=== PATIENT | male | born 1935 | race Caucasian/White ===

== ENCOUNTER 2016-09-10 11:26 | Observation (INO) ==
[2016-09-10] MEDS ORDERED: IOPAMIDOL 100 ML BOTTLE IJ ONE (11:27)
--- NOTE | 2016-09-10 12:25 | Emergency Department Note ---
Dizziness HPI - General Chief Complaint: Dizziness Stated Complaint: increased dizziness/weakness Time Seen by Provider: 09/10/16 11:44 Source: patient Mode of arrival: EMS Limitations: no limitations - History of Present Illness HPI Narrative: 80-year-old male presents with increased dizziness and lower extremity weakness. He states this started yesterday when he was working out in the yard. He stood up after bending over and felt lightheaded. He states that the lightheadedness has increasingly gotten worse. This is worse with position change. The worse symptoms as when he sits up from a sitting to standing position. He had a fall last night and bumped his arm but did not hit his head. He was seen here yesterday and had a head CT and a lower extremity venous ultrasound which were negative. Was diagnosed with BPPV. He states that it does not feel like the room is spinning. He states that is a lightheaded feeling when he stands up. He was given some IV fluids yesterday. He is on Coumadin due to PEs that he has had in his lungs. He denies shortness of breath or cough. Denies chest pain. He has had a back injury years ago and has some right-sided lower extremity weakness and some radicular symptoms. He has pain in the left calf when he walks. Nontender to palpation. - Related Data Previous Rx's Medication Instructions Recorded DISABLED PARKING #1 each NS 03/04/15 warfarin 1 mg tablet 2 mg PO .COMPLEX #60 tab 08/06/16 warfarin 5 mg tablet 5 mg PO .6XW #30 tab 09/02/16 Meclizine [Antivert] 25 mg PO TIDP PRN #15 tablet 09/09/16 Allergies Allergy/AdvReac Type Severity Reaction Status Date / Time alendronate sodium Allergy Unknown Cramping Verified 11/25/15 09:09 [From Fosamax] of the Muscles codeine [CODEINE] AdvReac Intermediate Nausea/Vomi Verified 11/25/15 09:09 ting diazepam [DIAZEPAM] AdvReac Unknown Delirium Verified 11/25/15 09:09 Review of Systems All systems ED: reviewed and negative except as stated. Past Medical History - Past Medical History Medical history: Reports: arthritis, cancer (Prostate), DVT, pulmonary embolus Surgical history ED: Reports: cataract, herniorrhaphy, prostatectomy, tonsillectomy Family history: Reports: non-contributory - Social History smoking status: Never smoker Physical Exam Carotid bruit not auscultated. No ataxia noted. He is able to to finger to nose with eyes closed. Able to stand without swaying one way or the other. Very dizzy when he stands or sits up. Able to transfer without assistance. Not dizzy when laying still - General Limitations: no limitations General appearance: alert, in no apparent distress - Head Head exam: atraumatic, normocephalic, normal inspection - Eye Eye exam: Present: normal appearance, nystagmus (to the left. No symptoms of dizziness). Absent: PERRL, EOMI - Neck Neck exam: Present: normal inspection, full ROM. Absent: tenderness, lymphadenopathy - Chest Chest inspection: Present: normal inspection, symmetric chest wall rise - Respiratory Respiratory exam: Present: normal lung sounds bilaterally - Cardiovascular Cardiovascular exam: Present: regular rate, normal heart sounds - Abdominal Exam Abdominal exam: Present: soft, normal bowel sounds. Absent: tenderness - Extremities Exam Extremities exam: Present: other (right lower extremity weakness which is chronic. Upper extremities normal full strength) - Neurological Exam Neurological exam: Present: alert, oriented X3, CN II-XII intact - Psychiatric Psychiatric exam: Present: normal affect, normal mood - Skin Skin exam: Present: warm, dry, intact Course Course Narrative: Dr. Lambert will Admit Vital Signs Temperature 98.5 F 09/10/16 11:27 Pulse Rate 77 09/10/16 11:27 Respiratory Rate 19 09/10/16 11:27 Blood Pressure 133/71 09/10/16 11:27 Pulse Oximetry (%) 95 09/10/16 11:27 Temperature 97.6 F 09/10/16 17:52 Pulse Rate 82 09/10/16 17:30 Respiratory Rate 18 09/10/16 17:52 Blood Pressure 146/80 09/10/16 17:52 Pulse Oximetry (%) 94 09/10/16 17:52 Dizziness - Lab Data Lab results reviewed: Yes I reviewed the patient's lab results. Result diagrams: 09/10/16 12:30 09/10/16 12:30 Lab Results 09/10/16 09/10/16 09/10/16 Range/Units 12:30 12:30 12:30 WBC 9.1 (4.5-11.0) K/mcL RBC 4.32 L (4.50-5.90) M/mcL Hgb 13.2 L (13.5-16.5) g/dL Hct 39.8 L (41.0-55.0) % MCV 92.2 (80.0-100.0) fL MCH 30.5 (26.0-34.0) pg MCHC 33.1 (31.0-36.0) g/dL RDW 14.7 H (11.5-14.5) % Plt Count 260 (140-440) K/mcL MPV 8.1 (7.4-10.4) fL Total Counted 100 Seg Neutrophils % 63 (38-78) % Band Neutrophils % Not Reportable Lymphocytes % 24 (15-49) % Monocytes % (Manual) 10 (1-12) % Eosinophils % (Manual) 3 (0-7) % Platelet Estimate Normal (NORMAL) RBC Morphology Normal (NORMAL) PT 21.3 H (11.9-14.5) sec INR 1.8 H (0.9-1.1) VBG Lactic Acid (0.5-2.2) mmol/L Sodium 138 (133-145) mmol/L Potassium 4.0 (3.3-5.1) mmol/L Chloride 103 (96-108) mmol/L Carbon Dioxide 24 (22-30) mmol/L Anion Gap 11.0 (8-16) BUN 20 (8-23) mg/dl Creatinine 1.3 H (0.7-1.2) mg/dl GFR Calculation 51 Glucose 91 (70-105) mg/dL Calcium 9.0 (8.6-10.4) mg/dl Total Bilirubin 0.4 (0.0-1.0) mg/dL AST 14 (0-37) U/l ALT 11 (0-40) U/l Alkaline Phosphatase 50 (39-117) U/L Total Protein 6.5 (5.9-8.4) gm/dL Albumin 3.6 (3.2-5.2) gm/dL Globulin 2.9 (2.2-3.7) gm/dL Albumin/Globulin Ratio 1.2 (1.0-2.3) TSH (0.27-5.01) uIU/ml Urine Color Urine Appearance Urine pH (5.0-9.0) Ur Specific [place] (1.000-1.035) Urine Protein (NEG) mg/dL Urine Glucose (UA) (NEG) mg/dL Urine Ketones (NEG) mg/dL Urine Occult Blood (<0.03) mg/dL Urine Nitrate (NEG) Urine Bilirubin (NEG) mg/dL Urine Urobilinogen (NEG) mg/dL Ur Leukocyte Esterase (NEG) /uL Urine RBC (0-1) /hpf Urine WBC (0-4) /hpf Ur Squamous Epith Cells (0-4) /hpf Urine Bacteria (0) /hpf Urine Mucus (0) /hpf Ur Culture Indicated? 09/10/16 09/10/16 09/10/16 Range/Units 12:30 12:30 12:54 WBC (4.5-11.0) K/mcL RBC (4.50-5.90) M/mcL Hgb (13.5-16.5) g/dL Hct (41.0-55.0) % MCV (80.0-100.0) fL MCH (26.0-34.0) pg MCHC (31.0-36.0) g/dL RDW (11.5-14.5) % Plt Count (140-440) K/mcL MPV (7.4-10.4) fL Total Counted Seg Neutrophils % (38-78) % Band Neutrophils % Lymphocytes % (15-49) % Monocytes % (Manual) (1-12) % Eosinophils % (Manual) (0-7) % Platelet Estimate (NORMAL) RBC Morphology (NORMAL) PT (11.9-14.5) sec INR (0.9-1.1) VBG Lactic Acid 1.2 (0.5-2.2) mmol/L Sodium (133-145) mmol/L Potassium (3.3-5.1) mmol/L Chloride (96-108) mmol/L Carbon Dioxide (22-30) mmol/L Anion Gap (8-16) BUN (8-23) mg/dl Creatinine (0.7-1.2) mg/dl GFR Calculation Glucose (70-105) mg/dL Calcium (8.6-10.4) mg/dl Total Bilirubin (0.0-1.0) mg/dL AST (0-37) U/l ALT (0-40) U/l Alkaline Phosphatase (39-117) U/L Total Protein (5.9-8.4) gm/dL Albumin (3.2-5.2) gm/dL Globulin (2.2-3.7) gm/dL Albumin/Globulin Ratio (1.0-2.3) TSH 1.38 (0.27-5.01) uIU/ml Urine Color Straw Urine Appearance Clear Urine pH 6.0 (5.0-9.0) Ur Specific [place] 1.003 (1.000-1.035) Urine Protein Neg (NEG) mg/dL Urine Glucose (UA) Negative (NEG) mg/dL Urine Ketones Neg (NEG) mg/dL Urine Occult Blood Neg (<0.03) mg/dL Urine Nitrate Neg (NEG) Urine Bilirubin Neg (NEG) mg/dL Urine Urobilinogen Neg (NEG) mg/dL Ur Leukocyte Esterase Neg (NEG) /uL Urine RBC < 1 (0-1) /hpf Urine WBC 2 (0-4) /hpf Ur Squamous Epith Cells 0 (0-4) /hpf Urine Bacteria 0 (0) /hpf Urine Mucus Few (0) /hpf Ur Culture Indicated? No - Radiology Data Radiology results reviewed: Yes I reviewed the patient's radiology results. Negative chest CT. Renal lesion recommend US - EKG Data EKG attestation: Yes I reviewed and interpreted this EKG. EKG results narrative: No acute infarct Disposition Pt seen by DISPATCHER SERVICE CHIEF/PA only: No Clinical Impression: Dizziness, Weakness Disposition: Xfer As Inpt ([facility]) Condition: Fair
[2016-09-10] MEDS ORDERED: 0.9 % SODIUM CHLORIDE 1,000 ML IV ONE ×2 (12:29→14:04)
[2016-09-10 13:02] LABS: Mean Cell Volume 92.2 fL (80.0-100.0); Mean Corpuscular HGB Conc 33.1 g/dL (31.0-36.0); Mean Corpuscular Hemoglobin 30.5 pg (26.0-34.0); Platelet Count 260 K/mcL (140-440); RBC 4.32 M/mcL (4.50-5.90); Red Cell Distribution Width 14.7 % (11.5-14.5)
[2016-09-10 13:19] LABS: ALT/SGPT 11 U/l (0-40); Albumin 3.6 gm/dL (3.2-5.2); Albumin/Globulin Ratio 1.2 (1.0-2.3); Alkaline Phosphatase 50 U/L (39-117); Blood Urea Nitrogen 20 mg/dl (8-23)
[2016-09-10 13:24] LABS: Appearance,Urine CLEAR; Bacteria,Urine 0 /hpf (0); Bilirubin,Urine NEG (NEG); Color,Urine STRAW; Glucose,Urine (UA) NEGATIVE (NEG); Leukocyte Esterase,Urine NEG /uL (NEG); Mucus,Urine FEW /hpf (0); Nitrate,Urine NEG (NEG); Protein,Urine NEG (NEG); Specific Gravity,Urine 1.003 (1.000-1.035); Urine Blood NEG mg/dL (<0.03); Urine RBC < 1 /hpf (0-1); Urine Squamous Epithelial Cell 0 /hpf (0-4); Urine WBC 2 /hpf (0-4); Urobilinogen,Urine NEG (NEG)
--- NOTE | 2016-09-10 13:28 | XRay Report ---
CLINICAL INFORMATION: Dizziness. Weakness. TECHNIQUE: Upright PA and lateral chest x-ray COMPARISON: 11/20/2008 FINDINGS: Mildly elevated right hemidiaphragm. Small right effusion is possible. No evidence for left pleural effusion No focal pulmonary parenchymal infiltrate or mass. Lungs are negative. Heart size and vascularity are normal. No pulmonary edema. No pulmonary congestion. Belinda and mediastinum are negative. IMPRESSION: 1. Probable small right effusion 2. otherwise negative chest x-ray Interpreted and Authenticated by: Benjie Ac 09/10/16
[2016-09-10 13:35] LABS: Eosinophils % (Manual) 3 % (0-7); Lymphocytes % 24 % (15-49); Monocytes % (Manual) 10 % (1-12); Platelet Estimate NORMAL (NORMAL); RBC Morphology NORMAL (NORMAL); Segmented Neutrophils % 63 % (38-78)
--- NOTE | 2016-09-10 14:55 | Cat Scan Report ---
CLINICAL INFORMATION: Pneumonia COMPARISON: Chest x-ray dated 09/10/2016. Previous CT scan dated 11/12/2008 TECHNIQUE: Axial contrast enhanced images through the chest. Sagittally and coronally reformatted images. MIP reformatted images. 80 mL nonionic contrast material injected intravenously. FINDINGS: Lungs are negative. No parenchymal infiltrate. No parenchymal mass. There is mild bilateral lower lobe bronchiectasis. No honeycombing. No significant emphysematous disease. Belinda and mediastinum are negative for adenopathy. There is extensive coronary artery calcification. No pericardial fluid. There is no pleural fluid. There is mild elevation or eventration of the right hemidiaphragm. Diaphragmatic surface appeared flat on chest x-ray which was suggestive of possible pleural fluid. Thoracic aorta is negative. No mediastinal hematoma. No acute thoracic compression fractures. Sternum and ribs are negative. Images through the abdomen demonstrate a low-density abnormality in the upper pole of the right kidney. This measures 3.4 cm. This may be a benign cyst but it was not present on examination dated 11/12/2008. Renal ultrasound is recommended to exclude a solid mass in the right kidney IMPRESSION: 1. Negative chest CT scan. Mild eventration or elevation of the right hemidiaphragm. No parenchymal infiltrate. No pleural fluid 2. 3.4 cm right upper pole renal mass. Recommend ultrasound to exclude a solid lesion Interpreted and Authenticated by: Benjie Ac 09/10/16
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
[2016-09-10] MEDS ORDERED: IOPAMIDOL 100 ML BOTTLE IV ONE (17:41)
[2016-09-10] MEDS ORDERED: NALOXONE HCL 0.4 MG/ML VIAL IV PRN (17:52)
[2016-09-10] MEDS ORDERED: HYDROcodone/APAP 5/325MG TABLET PO PRN (17:52)
[2016-09-10] MEDS ORDERED: MECLIZINE 25 MG TABLET PO SCH (17:52)
[2016-09-10] MEDS ORDERED: ONDANSETRON 4 MG/2 ML VIAL IV PRN (17:52)
[2016-09-10] MEDS ORDERED: IPRATROPIUM/ALBUTEROL 3 ML AMPUL.NEB NEB PRN (17:52)
[2016-09-10] MEDS ORDERED: ACETAMINOPHEN 325 MG TABLET PO PRN (17:52)
[2016-09-10] MEDS: 0.9 % SODIUM CHLORIDE 1,000 ML IV SCH (18:14)
[2016-09-10] MEDS: HEPARIN 5,000 UNIT/ML VIAL SQ SCH (21:49)
[2016-09-11] MEDS: 0.9 % SODIUM CHLORIDE 1,000 ML IV SCH ×3 (04:10→20:16)
[2016-09-11 06:35] LABS: Basophils # (Auto) 0 K/mcL (0.0-0.3); Basophils % (Auto) 0.4 % (0.0-2.0); Eosinophils # (Auto) 0.4 K/mcL (0.0-0.7); Eosinophils % (Auto) 3.2 % (0.0-7.0); Granulocytes % (Auto) 66.7 % (38.0-78.0); Lymphocytes # (Auto) 2.2 K/mcL (1.5-4.8); Lymphocytes % (Auto) 20.6 % (15.5-49.0); Monocytes % (Auto) 9.1 % (1.0-12.0); Platelet Count 218 K/mcL (140-440); RBC 4.28 M/mcL (4.50-5.90)
[2016-09-11 06:48] LABS: ALT/SGPT 14 U/l (0-40); Albumin 3.2 gm/dL (3.2-5.2); Albumin/Globulin Ratio 1.2 (1.0-2.3); Alkaline Phosphatase 42 U/L (39-117); Bilirubin,Direct < 0.2 mg/dL (0.0-0.3); Blood Urea Nitrogen 20 mg/dl (8-23); Gamma Glutamyl Transpeptidase 10 U/L (8-61); Magnesium 1.9 mg/dL (1.6-2.5); Uric Acid 6.8 mg/dL (2.5-8.0)
--- NOTE | 2016-09-11 08:22 | Emergency Department Note ---
ED Note Addendum Note Addendum: I saw this patient in conjunction with Brandee Lee PA-C. I agree with her evaluation management documentation. In particular I visited with the patient as well discussing with him his options and reviewing the case with Brandee. Is admitted to Dr. Lambert after discussion with hospitalist
[2016-09-11] MEDS: HEPARIN 5,000 UNIT/ML VIAL SQ SCH (09:31)
--- NOTE | 2016-09-11 11:48 | Ultrasound Report ---
CLINICAL INFORMATION: Abnormal chest CT scan. Possible mass in the right kidney. TECHNIQUE: Grayscale and color flow Doppler spectral imaging COMPARISON: Chest CT scan dated 09/10/2016. Patient also underwent abdominal CT scan on 11/12/2008 FINDINGS: Right kidney measures 12.8 x 5.2 x 4.7 cm. There is no solid or cystic renal mass. There is moderate right hydronephrosis. Etiology is not certain. The right ureter is not identified throughout its length. There is no detectable bladder mass or calculus. Right renal cortex is echogenic consistent with medical renal disease. Left kidney measures 11.9 x 4.7 x 4.2 cm. There is a left mid pole cyst which measures approximately 9 mm. No solid mass. No hydronephrosis. There is mild left upper pole cortical loss consistent with old infarct or chronic pyelonephritis. Left renal cortex is mildly echogenic consistent with medical renal disease. Bladder is not well evaluated as the patient voided just prior to examination. Ureteral jets are not identified. IMPRESSION: 1. Moderate right hydronephrosis. Etiology not certain 2. Mildly increased renal echogenicity bilaterally consistent with medical renal disease Interpreted and Authenticated by: Benjie Ac 09/11/16
--- NOTE | 2016-09-11 13:47 | Cat Scan Report ---
CLINICAL INFORMATION: Dizziness. Weakness. COMPARISON: Brain CT scans dated 09/09/2016 and 11/12/2008 TECHNIQUE: Axial noncontrast-enhanced images through the brain. FINDINGS: No acute intracranial hemorrhage. No subdural hematoma. No subarachnoid hemorrhage. No intra-axial hematoma. No focal intra-axial attenuation abnormalities or areas of localized mass effect. No midline shift. Brain volume is normal for age. Brainstem and cerebellum are negative. No hyperdense middle cerebral artery sign. No calvarial lesions. Skull base is negative. IMPRESSION: Negative noncontrast enhanced brain CT scan Interpreted and Authenticated by: Benjie Ac 09/11/16
--- NOTE | 2016-09-11 13:54 | Cat Scan Report ---
CLINICAL INFORMATION: Dizziness TECHNIQUE: Axial images to the upper chest and neck. 80 mL intravenous contrast material was administered. Scanning was performed during arterial phase. Sagittal and coronal reformatted images. MIP reformatted images and three dimensionally reformatted images COMPARISON: None. FINDINGS: Aortic arch is negative. Normal origins of the left subclavian artery, left common carotid artery, innominate artery, right common carotid artery, and right subclavian artery. Mild calcification at the origin of the right vertebral artery without stenosis. Negative origin of the left vertebral artery. Left common carotid artery is normal. There is a single small calcification at the origin of the left internal carotid artery. There is no stenosis. No luminal irregularity. Normal right common carotid artery. Right internal carotid artery is normal. Cervical vertebral arteries are negative. No soft tissue abnormality. No prevertebral soft tissue swelling. No solid or cystic mass. No pathologic adenopathy. Lung apices are negative. No parenchymal infiltrate or mass. Superior mediastinum is negative IMPRESSION: Negative carotid CTA Interpreted and Authenticated by: Benjie Ac 09/11/16
--- NOTE | 2016-09-11 13:56 | Cat Scan Report ---
CLINICAL INFORMATION: Dizziness TECHNIQUE: Axial images through the brain. 80 mL intravenous contrast material injected and scanning performed during arterial phase. Sagittally and coronally reformatted images. MIP reformatted images COMPARISON: None. FINDINGS: Intracranial vertebral arteries and basilar artery are negative. No stenosis. There is calcification of the cavernous segments of the internal carotid arteries bilaterally. No stenosis. No cavernous aneurysm. Petrous and supraclinoid segments are negative. M1 segments of the middle cerebral arteries and A1 segments of the anterior cerebral arteries are negative. History communicating arteries are patent. No intracranial aneurysm. No arteriovenous reformation. No enhancing intra-axial lesions. No calvarial lesions. Temporal bones are negative. IMPRESSION: Negative CTA of the brain Interpreted and Authenticated by: Benjie Ac 09/11/16
[2016-09-11] MEDS ORDERED: WARFARIN 3 MG TABLET PO SCH (14:00)
--- NOTE | 2016-09-11 15:35 | Internal Med Progress Note ---
Medical - PN: Subj Patient information: Note initiated : 09/11/16 at 3:32 pm Service Date, if different from initiated Date: [] Patient: Gregory Mauricio 80 y/o M admitted on 09/10/16 for Increased Dizziness/ Weakness. Chief Complaint: [] Interval history: Mr. Mauricio is a 80 year old Male with h/o PE on coumadin who presents to the ER x 2 with complaints of dizziness. the patient reports she was doing well 2 days ago, when in the morning he noticed around 8 AM was slightly dizzy he went outside to work in his yard,he bent down and when he woke up he was very dizzy. The patient's dizziness progressed we'll point where yesterday he was seen in the emergency room. The patient denies any headache, nausea or vomiting. He notes he has had history of vertigo in the past and this symptom is not like his previous vertigo-like symptoms. In the emergency yesterday he was given meclizine, he took the medication however there was no improvement in his complaints, he therefore presented again to the emergency today. The patient had a negative CT scan of the head, his blood work is unremarkable except for creatinine of 1.3. His creatinine was 1.0 last year. The patient underwent a CT chest because his INR was subtherapeutic, no evidence of pneumonia or pulmonary embolism was noted. given that the patient is extremely dizzy when he tries to move around and this is his second visit to the emergency room he was admitted to the hospital for further workup and management. The patient denies any dizziness when he sitting still, but admits to being dizzy even with minor movements of his head. He denies any history of stroke or TIA, no history of weakness in the arms or legs, no balance issues besides the dizziness, no chest pain palpitations shortness of breath headache. we tried to obtain an MRI MRA of the head however according to the tech the patient does not fit in the machine. CT also reviewed possible 3.4 cm mass in the kidney. According to the patient he had hematuria in the past, had a negative CT scan 6 months ago and a negative cystoscopy. 09/11 Pt seen examined, improved since yesterday but still having dizziness with movement of head, orthostatic are negative. Pt still having sensation of passing out. NO other symptoms reported. Will repeat CT head, and try to get CTA head and neck today, labs unchanged. Plan of care discussed with patient and . MRI not able gina done as pt did not fit in the machine. IF CT is neg then pt will need ENT/ Neurology evaluation for further management. He may be able to go in an open MRI machine which is not availabe at this facility. Pt and his verbalized understanding. Pertinent ROS: Denies headache, dizziness present but better. Denies chest pain, palpitations Denies cough or shortness of breath Denies abdominal pain, nausea or vomiting. - Constitutional Vitals: Vital Signs Temp Pulse Resp BP Pulse Ox 97.1 F 65 16 150/62 97 09/11/16 12:00 09/11/16 12:00 09/11/16 12:00 09/11/16 12:00 09/11/16 12:00 Period Temp Pulse Resp BP Sys/Gallardo Pulse Ox Last 24 Hr 96.7 F-98.3 F 65-82 16-18 128-163/60-80 93-99 Intake and Output 09/11/16 09/11/16 09/11/16 05:59 13:59 21:59 Intake Total 1120 / 1120 420 / 420 Output Total 550 / 550 550 / 550 Balance 570 / 570 -130 / -130 Weight 180 lb Patient Weight 09/12/16 05:59 Weight 180 lb Intake & Output: Intake & Output 09/11/16 09/11/16 09/11/16 05:59 13:59 21:59 Intake Total 1120 / 1120 420 / 420 Output Total 550 / 550 550 / 550 Balance 570 / 570 -130 / -130 Weight 180 lb Intake: IV 1000 / 1000 Sodium Chloride 0.9% 1, 1000 / 1000 000 ml @ 100 mls/hr IV . Q10H [facility] Rx#:[id number] Oral 120 / 120 420 / 420 Output: Void Amount 550 / 550 550 / 550 Other: Meal Lunch Percent of Meal Consumed 100% Feeding Ability Assist with Tray Set Up # Bowel Movements 0 Exam: Constitutional; Afebrile, cooperative, alert, not in distress. Eyes- No icterus, , No periorbital swelling Ears- Ext ear normal, hearing normal to conversation. Neck- Midline trachea, supple Respiratory system: Air Entry equal on both sides, No crackles or wheezing, no rhonchi. CVS- Rate rhythm regular, S1,S2 heard, no gallop, no rub. Abdomen- Soft nontender abdomen, no organomegaly, no tenderness, no guarding or rigidity, [employer]- AOOx3, moving all extremities, no gross focal deficit noted. Medical - PN: Obj Da - Labs CBC & Chem 7: 09/11/16 04:13 09/11/16 04:13 Labs: Abnormal Lab Results 09/11/16 09/11/16 09/11/16 04:13 04:13 04:13 RBC 4.28 L Hgb 12.9 L Hct 39.0 L [place] # (Auto) 1.0 H PT 23.5 H INR 2.0 H Carbon Dioxide 19 L Creatinine 1.3 H Calcium 8.3 L Phosphorus 2.2 L Total Protein 5.8 L Meds: Medications Acetaminophen (Tylenol) 650 mg PO Q6HP PRN PRN Reason: PAIN/FEVER > 101 Hydrocodone Bitart/Acetaminophen ([place] 5/325mg) 1 tab PO Q4HP PRN PRN Reason: Pain Albuterol/Ipratropium (Duoneb) 3 ml NEB Q4HRT PRN PRN Reason: Shortness Of Breath Or Wheezing Heparin Sodium (Porcine) (Heparin) 5,000 unit SQ Q12 [facility] Last Admin: 09/11/16 09:31 Dose: Not Given Sodium Chloride (Sodium Chloride 0.9%) 1,000 mls @ 100 mls/hr IV .Q10H [facility] Last Admin: 09/11/16 14:17 Dose: Not Given Meclizine HCl (Antivert) 25 mg PO TIDP [facility] Naloxone HCl (Narcan) 0.1 mg IV Q2MIN PRN PRN Reason: Opiate Reversal Ondansetron HCl (Zofran) 4 mg IV Q4HP PRN PRN Reason: Nausea And Vomiting Warfarin Sodium (Coumadin Per Pharmacy) 1 order PO UD [facility] Warfarin Sodium (Coumadin) 6 mg PO DAILY@1400 [facility] Last Admin: 09/11/16 14:18 Dose: Not Given Medical - PN: A/P - Time Spent With Patient Total time spent is greater than 50% in coordination of care (as documented) at patient's floor/unit and/or counseling patient: - Narrative A/P Narrative: A/P Dizziness: etiology uncertian, repeat Head scanning, may need neurology ent eval. PT eval appreciated, if repeat Scanning is neg, then pt may benefit from open MRI, which can be done as outpatient if patient condition stablizes somewhat. Acute kidney injury: vs CKD, creat remains at 1.3, Renal mass-workup neg 6 months ago for hematuria, USG pending. Pulmonary embolism-on Coumadin INR 2.0 dVT on coumadin with therapeutic INR , discontinue Heparin. diet regular Full code Medical - PN: Qual - VTE Deep Vein Thrombosis/Pulmonary Embolism Present on Admission: No
[2016-09-12 05:45] LABS: Basophils # (Auto) 0 K/mcL (0.0-0.3); Basophils % (Auto) 0.5 % (0.0-2.0); Eosinophils # (Auto) 0.5 K/mcL (0.0-0.7); Eosinophils % (Auto) 5.7 % (0.0-7.0); Granulocytes % (Auto) 57.6 % (38.0-78.0); Lymphocytes # (Auto) 2.5 K/mcL (1.5-4.8); Lymphocytes % (Auto) 27.5 % (15.5-49.0); Mean Cell Volume 93.1 fL (80.0-100.0); Mean Corpuscular HGB Conc 33.6 g/dL (31.0-36.0); Mean Corpuscular Hemoglobin 31.3 pg (26.0-34.0); Monocytes # (Auto) 0.8 K/mcL (0.1-0.9); Monocytes % (Auto) 8.7 % (1.0-12.0); Platelet Count 234 K/mcL (140-440); RBC 4.05 M/mcL (4.50-5.90); Red Cell Distribution Width 14.4 % (11.5-14.5)
[2016-09-12 06:01] LABS: ALT/SGPT 11 U/l (0-40); Albumin 3.3 gm/dL (3.2-5.2); Albumin/Globulin Ratio 1.2 (1.0-2.3); Alkaline Phosphatase 42 U/L (39-117); Bilirubin,Direct < 0.2 mg/dL (0.0-0.3); Blood Urea Nitrogen 20 mg/dl (8-23); Gamma Glutamyl Transpeptidase 9 U/L (8-61); Magnesium 1.9 mg/dL (1.6-2.5); Uric Acid 6.5 mg/dL (2.5-8.0)
[2016-09-12] MEDS: 0.9 % SODIUM CHLORIDE 1,000 ML IV SCH ×3 (07:00→07:02)
--- NOTE | 2016-09-12 07:22 | Internal Med Progress Note ---
Medical - PN: Subj Patient information: Note initiated : 09/12/16 at 7:17 am Service Date, if different from initiated Date: [] Patient: Gregory Mauricio 80 y/o M admitted on 09/10/16 for Increased Dizziness/ Weakness. Chief Complaint: [] Interval history: Mr. Mauricio is a 80 year old Male with h/o PE on coumadin who presents to the ER x 2 with complaints of dizziness. the patient reports she was doing well 2 days prior to admission, when in the morning he noticed around 8 AM was slightly dizzy he went outside to work in his yard,he bent down and when he woke up he was very dizzy. The patient's dizziness progressed to the point where 1 day [employer] he was seen in the emergency room. The patient denies any headache, nausea or vomiting. He notes he has had history of vertigo in the past and this symptom is not like his previous vertigo-like symptoms. In the emergency yesterday he was given meclizine, he took the medication however there was no improvement in his complaints, he therefore presented again to the emergency 09/10. The patient had a negative CT scan of the head, his blood work is unremarkable except for creatinine of 1.3. His creatinine was 1.0 last year. The patient underwent a CT chest because his INR was subtherapeutic, no evidence of pneumonia or pulmonary embolism was noted. given that the patient is extremely dizzy when he tries to move around and this is his second visit to the emergency room he was admitted to the hospital for further workup and management. The patient denies any dizziness when he sitting still, but admits to being dizzy even with minor movements of his head. He denies any history of stroke or TIA, no history of weakness in the arms or legs, no balance issues besides the dizziness, no chest pain palpitations shortness of breath headache. we tried to obtain an MRI MRA of the head however according to the tech the patient does not fit in the machine. CT also reviewed possible 3.4 cm mass in the kidney. According to the patient he had hematuria in the past, had a negative CT scan 6 months ago and a negative cystoscopy. 09/11 Pt seen examined, improved since yesterday but still having dizziness with movement of head, orthostatic are negative. Pt still having sensation of passing out. NO other symptoms reported. Will repeat CT head, and try to get CTA head and neck today, labs unchanged. Plan of care discussed with patient and . MRI not able gina done as pt did not fit in the machine. IF CT is neg then pt will need ENT/ Neurology evaluation for further management. He may be able to go in an open MRI machine which is not available at this facility. Pt and his verbalized understanding. 09/12: Renal US showed now mass but did show hydronephrosis on the right. BP has been climbing steadily over the last few days and was recorded at 182/72 early this AM. Repeat head CT neg; head/neck CTA neg. - Constitutional Vitals: Vital Signs Temp Pulse Resp BP Pulse Ox 97.8 F 72 18 182/72 96 09/11/16 23:43 09/11/16 23:43 09/12/16 03:49 09/12/16 03:49 09/12/16 03:49 Period Temp Pulse Resp BP Sys/Gallardo Pulse Ox Last 24 Hr 97.1 F-98.7 F 62-72 16-18 119-182/57-75 94-97 Intake and Output 09/11/16 09/12/16 09/12/16 21:59 05:59 13:59 Intake Total 1770 / 1770 440 / 440 1003 / 1003 Output Total 1050 / 1050 1050 / 1050 Balance 720 / 720 -610 / -610 1003 / 1003 Weight 181 lb 11.2 oz Intake & Output: Intake & Output 09/11/16 09/12/16 09/12/16 21:59 05:59 13:59 Intake Total 1770 / 1770 440 / 440 1003 / 1003 Output Total 1050 / 1050 1050 / 1050 Balance 720 / 720 -610 / -610 1003 / 1003 Weight 181 lb 11.2 oz Intake: IV 1000 / 1000 1003 / 1003 Sodium Chloride 0.9% 1, 1000 / 1000 1003 / 1003 000 ml @ 100 mls/hr IV . Q10H [facility] Rx#:[id number] Oral 770 / 770 440 / 440 Output: Void Amount 1050 / 1050 1050 / 1050 Medical - PN: Obj Da - Labs CBC & Chem 7: 09/12/16 03:53 09/12/16 03:53 Labs: Abnormal Lab Results 09/12/16 09/12/16 09/12/16 03:53 03:53 03:53 RBC 4.05 L Hgb 12.6 L Hct 37.6 L [place] # (Auto) PT 21.5 H INR 1.8 H Carbon Dioxide Creatinine 1.3 H Calcium 8.5 L Phosphorus 2.2 L Total Protein 09/11/16 09/11/16 09/11/16 04:13 04:13 04:13 RBC 4.28 L Hgb 12.9 L Hct 39.0 L [place] # (Auto) 1.0 H PT 23.5 H INR 2.0 H Carbon Dioxide 19 L Creatinine 1.3 H Calcium 8.3 L Phosphorus 2.2 L Total Protein 5.8 L Meds: Medications Acetaminophen (Tylenol) 650 mg PO Q6HP PRN PRN Reason: PAIN/FEVER > 101 Hydrocodone Bitart/Acetaminophen ([place] 5/325mg) 1 tab PO Q4HP PRN PRN Reason: Pain Albuterol/Ipratropium (Duoneb) 3 ml NEB Q4HRT PRN PRN Reason: Shortness Of Breath Or Wheezing Sodium Chloride (Sodium Chloride 0.9%) 1,000 mls @ 100 mls/hr IV .Q10H [facility] Last Admin: 09/12/16 07:02 Dose: 100 mls/hr Meclizine HCl (Antivert) 25 mg PO TIDP [facility] Naloxone HCl (Narcan) 0.1 mg IV Q2MIN PRN PRN Reason: Opiate Reversal Ondansetron HCl (Zofran) 4 mg IV Q4HP PRN PRN Reason: Nausea And Vomiting Warfarin Sodium (Coumadin Per Pharmacy) 1 order PO UD [facility] Warfarin Sodium (Coumadin) 6 mg PO DAILY@1400 [facility] Last Admin: 09/11/16 14:18 Dose: Not Given Medical - PN: A/P - Time Spent With Patient Total time spent is greater than 50% in coordination of care (as documented) at patient's floor/unit and/or counseling patient: Medical - PN: Qual - VTE Deep Vein Thrombosis/Pulmonary Embolism Present on Admission: No
--- NOTE | 2016-09-12 09:18 | Discharge Summary ---
Medical - DS: Prov Patient information: Note initiated : 09/12/16 at 9:14 am Service Date, if different from initiated Date: [] Patient: Gregory Mauricio 80 y/o M admitted on 09/10/16 for Increased Dizziness/ Weakness. Chief Complaint: lightheadedness Mr. Mauricio is a 80 year old Male with h/o PE on coumadin who presents to the ER x 2 with complaints of dizziness that he characterizes as lightheadedness. He has had previous episodes of severe vertigo and clearly differentiates that this is lightheadedness. CT head x 2 and head/neck CTA were done to evaluate for stenoses or infarct, which were negative. Due to spinal issues, pt was unable to fit in the MRI machine for further evaluation. His symptoms completely resolved with IV hydration. He was counseled to increase his salt and fluid intake especially in the hot weather. CT incidentally revealed a possible mass in the R kidney. This was evaluated by US and showed no mass but did show R hydronephrosis. He has had a history of hematuria and reports a full negative workup with Dr. Pena of urology; this was attributed to his coumadin usage. He is aware that he should follow up with Dr. Pena for the hydronephrosis. Date of admission: 09/10/16 17:40 Discharge date: 09/12/16 Primary care physician: Trevor Quintero Admitting clinician: Patricia Lambert Discharging clinician: Abbey Stauffer Medical - DS: Meds - Discharge Medications Active and Home Medications: Home Medications DISABLED [place] #1 each NS 03/04/15 [Rx Confirmed 11/25/15 Last Taken Unknown] warfarin 1 mg tablet 2 mg PO .COMPLEX #60 tab 08/06/16 [Rx Confirmed 09/09/16 Last Taken Unknown] warfarin 5 mg tablet 5 mg PO .6XW #30 tab 09/02/16 [Rx Confirmed 09/09/16 Last Taken Unknown] Meclizine [Antivert] 25 mg PO TIDP PRN #15 tablet 09/09/16 [Rx Last Taken Unknown] Medical - DS: Hosp Hospital course: Mr. Mauricio is a 80 year old M Discharge diagnosis: hypovolemia - Time Spent with Patient Total time spent providing and/or coordinating discharge services: Greater than 30 minutes Medical - DS: Exam - Constitutional Vitals: Vital Signs Temp Pulse Pulse Resp BP BP Pulse Ox 09/12/16 08:00 98.0 F 18 158/87 100 09/12/16 03:49 18 182/72 96 09/11/16 23:43 97.8 F 72 16 148/69 09/11/16 20:00 98.7 F 64 18 130/66 94 09/11/16 16:00 98.6 F 62 16 119/57 94 09/11/16 14:00 67 09/11/16 12:00 97.1 F 65 16 150/62 97 09/11/16 10:00 62 Intake and Output 09/11/16 09/12/16 09/12/16 21:59 05:59 13:59 Intake Total 1770 / 1770 440 / 440 1003 / 1003 Output Total 1050 / 1050 1050 / 1050 400 / 400 Balance 720 / 720 -610 / -610 603 / 603 Intake: IV 1000 / 1000 1003 / 1003 Sodium Chloride 0.9% 1, 1000 / 1000 1003 / 1003 000 ml @ 100 mls/hr IV . Q10H [facility] Rx#:[id number] Oral 770 / 770 440 / 440 Output: Void Amount 1050 / 1050 1050 / 1050 400 / 400 Other: Weight 181 lb 11.2 oz General appearance: cooperative Additional comments: nad - Respiratory Respiratory exam: Present: normal respiratory exam, CTAB - Cardiovascular Cardiovascular exam: Present: normal rate and rhythm - Neurological Exam Neurological exam: Present: alert, oriented X3. Absent: motor sensory deficit Medical - DS: Data Labs on day of discharge: Labs from last 24 hours 09/12/16 09/12/16 09/12/16 03:53 03:53 03:53 WBC 8.9 RBC 4.05 L Hgb 12.6 L Hct 37.6 L MCV 93.1 MCH 31.3 MCHC 33.6 RDW 14.4 Plt Count 234 MPV 8.3 Gran % 57.6 Lymph % (Auto) 27.5 [place] % (Auto) 8.7 Eos % (Auto) 5.7 Baso % (Auto) 0.5 Gran # 5.1 Lymph # (Auto) 2.5 [place] # (Auto) 0.8 Eos # (Auto) 0.5 Baso # (Auto) 0 PT 21.5 H INR 1.8 H Sodium 141 Potassium 4.2 Chloride 106 Carbon Dioxide 22 Anion Gap 13.0 BUN 20 Creatinine 1.3 H GFR Calculation 51 Glucose 81 Uric Acid 6.5 Calcium 8.5 L Phosphorus 2.2 L Magnesium 1.9 Total Bilirubin 0.4 Direct Bilirubin < 0.2 GGT 9 AST 14 ALT 11 Alkaline Phosphatase 42 Lactate Dehydrogenase 161 Total Protein 6.0 Albumin 3.3 Globulin 2.7 Albumin/Globulin Ratio 1.2 Triglycerides 100 Medical - DS: A/P - Patient/Caregiver Discharge Instructions Activity: as per physical therapy Diet: Regular Diet Additional Instructions: Increase your salt intake while the weather is hot. Ensure that you drink at least 2 quarts of fluid daily (coffee doesn't count as caffeine is a diuretic). Check your blood pressure when you feel dizzy and at least twice a week. Keep a log and follow up with Dr. Quintero. Your goal blood pressure is ~140/90. Keep track of your readings and see if this correlates with your lightheaded symptoms. Your renal ultrasound showed hydronephrosis of your right kidney. Please call Dr. Pena this week for urology followup. - Follow up Plan Disposition: Home, Self-Care Prognosis: Good Rehab Potential: Good I certify that the patient requires SNF services: No (dc to home) Overall status at discharge: patient is back to baseline Medical - DS: Qual - VTE Deep Vein Thrombosis/Pulmonary Embolism Present on Admission: No
== END 2016-09-12 11:43 | disposition home or self-care (01) ==
LOC: ICU 11:26 → ED 11:26 → ICU 17:48
PROVIDERS: ADMIT Internal Medicine; ATTEND Internal Medicine